=== PATIENT | female | born 1955 | race Caucasian/White ===

== ENCOUNTER 2024-07-02 11:20 | Outpatient (CLI) | payer MEDICARE ==
[2024-07-02 13:49] LABS: #Basophils 0.03 10x3/uL (0.0-0.2); %Basophils 0.5 % (0.0-1.0); %Eosinophils 0.9 % (0.0-10.0); %Lymphocytes 36.4 % (21.0-51.0); Hematocrit 42.4 % (36.0-47.0); Hemoglobin 13.7 g/dL (12.0-16.0); Mean Corpuscular HGB CONC 32.3 g/dL (32.0-36.0); Mean Corpuscular Hemoglobin 30.4 pg (27.0-31.0); Mean Corpuscular Volume 94.2 fL (78.0-98.0); Mean Platelet Volume 10.9 fL (7.4-10.4); Platelet Count 247 10x3/uL (130-400); RBC Distribution Width 14.6 % (11.5-14.5)
[2024-07-02 13:51] LABS: Bilirubin Negative (Negative); Blood, Urine Negative (Negative); Clarity Turbid (Clear); Glucose, Urine (Dipstick) Normal (Negative); Ketone, Urine Negative (Negative); Leukocyte 500 Leu/uL (Negative); Nitrite Negative (Negative); Protein, Urine (Dipstick) Negative (Neg-Trace); Specific Gravity, Urine 1.022 (1.002-1.036); Urobilinogen Normal mg/dL (Less than 2)
[2024-07-02 14:01] LABS: Prothrombin Time 12.9 sec (12.0-14.7)
[2024-07-02 14:03] LABS: Anion Gap 13 mmol/L (10-20); BUN (Urea Nitrogen) 15 mg/dL (9.8-20.1); Calc. Creatinine Clearance 0 mL/min (70-130); Calcium 8.8 mg/dL (7.8-10.44); Carbon Dioxide 23 mmol/L (23-31); Chloride 111 mmol/L (98-107); Estimated GFR 92; Glucose 85 mg/dL (80-115); Potassium 3.9 mmol/L (3.5-5.1); Sodium 143 mmol/L (136-145)
== END 2024-07-02 11:21 | disposition home or self-care (01) ==
LOC: LABBT 11:20
PROVIDERS: ATTEND Orthopaedic Surgery
DX: Z01.818 Encounter for other preprocedural examination (principal); M16.12 Unilateral primary osteoarthritis, left hip
CPT/HCPCS: 80048; 81003; 85025; 85610; 87077; 87081; 87086; 87186; 93005; 93010

== ENCOUNTER 2024-07-02 11:30 | Inpatient (IN) | payer MEDICARE ==
[2024-08-14] MEDS ORDERED: Tranexamic Acid 1,000 MG/10 ML VIAL ONE (06:17)
[2024-08-14] MEDS ORDERED: Vancomycin (BATCH) 1.5 GM/300 ML BAG ONE (06:17)
[2024-08-14] MEDS ORDERED: Sodium Chloride 0.9% 100 ML ONE (06:17)
[2024-08-14] MEDS ORDERED: PROPOFOL 20 ML ONE (06:30)
[2024-08-14] MEDS ORDERED: Rocuronium Bromide 10 MG/ML (10ML VIAL) ONE (06:31)
[2024-08-14] MEDS ORDERED: Dexamethasone 20 MG/5 ML VIAL ONE (06:31)
[2024-08-14] MEDS ORDERED: Ondansetron PF 4 MG/2 ML Vial ONE (06:31)
[2024-08-14] MEDS ORDERED: fentaNYL 50 mcg/mL 1 mL Vial ONE ×2 (06:31→10:13)
[2024-08-14] MEDS ORDERED: Lidocaine 1% PF 5 ML VIAL ONE (06:31)
[2024-08-14] MEDS ORDERED: Clindamycin/D5W 600 mg/50 ml Premix Bag ONE (06:45)
[2024-08-14] MEDS ORDERED: Midazolam HCl 2 mg/2 ml Vial ONE (06:48)
[2024-08-14] MEDS ORDERED: CEFAZOLIN 2 GM VIAL ONE (07:03)
[2024-08-14] MEDS ORDERED: HYDROcodone/Acetaminophen 5/325 mg Tablet PO PRN ×2 (08:00)
[2024-08-14] MEDS ORDERED: diphenhydrAMINE 50 MG/ML VIAL IM PRN (08:00)
[2024-08-14] MEDS ORDERED: Promethazine HCl 25 MG SUPP PR PRN (08:00)
[2024-08-14] MEDS ORDERED: diphenhydrAMINE 25 MG CAP PO PRN ×2 (08:00→09:36)
[2024-08-14] MEDS ORDERED: Naloxone HCl 0.4 mg/ml Vial IVP PRN (08:00)
[2024-08-14] MEDS ORDERED: diphenhydrAMINE 50 MG/ML VIAL IVP PRN (08:00)
[2024-08-14] MEDS ORDERED: Ondansetron PF 4 MG/2 ML Vial IVP PRN ×2 (08:00→09:36)
[2024-08-14] MEDS ORDERED: Moisturizing Cream (Eucerin) 113 GM JAR TOP PRN (08:00)
[2024-08-14] MEDS ORDERED: Bupivacaine 0.25% 10 ML VIAL EPIDURAL PRN (08:00)
[2024-08-14] MEDS ORDERED: Promethazine HCl 25 MG/ML VIAL IM PRN ×2 (08:00→09:36)
[2024-08-14] MEDS ORDERED: Naloxone HCl 0.4 mg/ml Vial IV PRN (08:00)
[2024-08-14] MEDS ORDERED: traMADol HCl 50 MG TAB PO PRN (08:00)
[2024-08-14] MEDS ORDERED: PHENYLEPHRINE-NS 100 MCG/ML 10 ML SYRINGE ONE (08:14)
[2024-08-14] MEDS ORDERED: SUGAMMADEX SODIUM 200 MG/2 ML VIAL ONE (09:36)
[2024-08-14] MEDS ORDERED: Acetaminophen 325 MG TAB PO PRN (09:36)
[2024-08-14] MEDS ORDERED: Zolpidem Tartrate 5 MG TAB PO PRN (09:36)
[2024-08-14] MEDS: Sodium Chloride 0.9% 1,000 ML IV SCH (14:17)
[2024-08-14] MEDS: Aspirin 81 mg Enteric Coated Tablet PO SCH ×2 (14:19→21:26)
[2024-08-14] MEDS: Ketorolac Tromethamine 30 MG (1 mL) VIAL IVP SCH (14:19)
[2024-08-14] MEDS: Ferrous Gluconate 324 MG TAB PO SCH ×2 (14:19→21:27)
[2024-08-14] MEDS: Senokot S 8.6-50 MG TAB PO SCH ×2 (14:20→21:26)
[2024-08-14] MEDS: Multivitamin W/ Minerals 1 TAB PO SCH (14:20)
[2024-08-14 15:26] VITALS: BMI 41.5
[2024-08-14] MEDS: CEFAZOLIN 2 GM in Sodium Chloride 0.9% 100 ML IVPB SCH (15:45)
[2024-08-15] MEDS: FENTANYL 500 MCG/10 ML VIAL 500 MCG, Bupivacaine 0.75% 10 ML in Sodium Chloride 0.9% 80 ML EPIDURAL SCH (02:45)
[2024-08-15 05:13] LABS: Hemoglobin 10.2 g/dL (12.0-16.0); Mean Corpuscular HGB CONC 32.9 g/dL (32.0-36.0); Mean Corpuscular Hemoglobin 30.8 pg (27.0-31.0); Mean Corpuscular Volume 93.7 fL (78.0-98.0); Platelet Count 203 10x3/uL (130-400); RBC Distribution Width 14.4 % (11.5-14.5); Red Blood Cell (RBC) Count 3.31 mill/uL (4.20-5.40)
[2024-08-15] MEDS: Multivitamin W/ Minerals 1 TAB PO SCH (08:43)
[2024-08-15] MEDS: traMADol HCl 50 MG TAB PO PRN (10:04)
[2024-08-15] MEDS ORDERED: HYDROcodone/Acetaminophen 10/325 mg Tablet PO PRN ×2 (11:21)
[2024-08-15 12:49] VITALS: BP 112/62; TEMP 98.9
== END 2024-08-15 13:00 | disposition home or self-care (01) | DRG 470 ==
LOC: SURG A 08-14 05:48 → SURG B 08-14 13:05
PROVIDERS: ADMIT Orthopaedic Surgery; ATTEND Orthopaedic Surgery
PROC: 0SRB0JZ Replacement of Left Hip Joint with Synthetic Substitute, Open Approach (ICD-10-PCS; principal; 2024-08-14)
DX: M16.12 Unilateral primary osteoarthritis, left hip (principal); Z68.41 Body mass index [BMI] 40.0-44.9, adult; Z88.0 Allergy status to penicillin; E66.9 Obesity, unspecified; F17.200 Nicotine dependence, unspecified, uncomplicated
CPT/HCPCS: 36415; 36416; 72170; 85027; C1713; C1776; J1100; J1885; J2250; J2405; J2704; J3010; J3370; J3490; J7030

== ENCOUNTER 2024-08-05 13:48 | Outpatient (CLI) | payer MEDICARE ==
[2024-08-05 14:39] LABS: #Basophils 0.03 10x3/uL (0.0-0.2); %Basophils 0.5 % (0.0-1.0); %Eosinophils 2.2 % (0.0-10.0); %Lymphocytes 36.6 % (21.0-51.0); %Monocytes 8.4 % (0.0-10.0); %Neutrophils 52.1 % (42.0-75.0); Hematocrit 40.7 % (36.0-47.0); Hemoglobin 13.8 g/dL (12.0-16.0); Mean Corpuscular HGB CONC 33.9 g/dL (32.0-36.0); Mean Corpuscular Hemoglobin 30.5 pg (27.0-31.0); Mean Platelet Volume 10.2 fL (7.4-10.4); Platelet Count 227 10x3/uL (130-400); RBC Distribution Width 14.2 % (11.5-14.5); Red Blood Cell (RBC) Count 4.52 mill/uL (4.20-5.40)
[2024-08-05 14:52] LABS: Prothrombin Time 13.1 sec (12.0-14.7)
[2024-08-05 14:53] LABS: PTT 27.8 sec (22.9-36.1)
[2024-08-05 14:58] LABS: Anion Gap 13 mmol/L (10-20); BUN (Urea Nitrogen) 14 mg/dL (9.8-20.1); Calc. Creatinine Clearance 0 mL/min (70-130); Calcium 8.9 mg/dL (7.8-10.44); Carbon Dioxide 21 mmol/L (23-31); Chloride 106 mmol/L (98-107); Estimated GFR 89; Glucose 86 mg/dL (80-115); Sodium 136 mmol/L (136-145)
== END 2024-08-05 13:49 | disposition home or self-care (01) ==
LOC: LABBT 13:48
PROVIDERS: ATTEND Orthopaedic Surgery
DX: Z01.812 Encounter for preprocedural laboratory examination (principal); M16.12 Unilateral primary osteoarthritis, left hip
CPT/HCPCS: 80048; 85025; 85610; 85730; 87081